=== PATIENT | female | born 1950 | race Caucasian/White ===

== ENCOUNTER 2017-11-07 07:45 | Emergency (ER) | payer OTHER ==
[~2017-11-07] VITALS: Ht 162.6 cm; Wt 61.5 kg
[~2017-11-07 07:45] MED LIST: FLEXERIL5 MG PO; VICODIN,LORT1 TABLET PO
[2017-11-07] MEDS ORDERED: VENTOLIN HFA18 GM IH (09:49)
[2017-11-07 10:54] VITALS: BP 130/78
== END 2017-11-07 10:55 | disposition home or self-care (01) ==
LOC: EME 07:45
DX: J40 Bronchitis, not specified as acute or chronic (principal); J98.01 Acute bronchospasm; R10.9 Unspecified abdominal pain; Z87.891 Personal history of nicotine dependence
CPT/HCPCS: 71046; 94640; 99281; 99284